=== PATIENT | female | born 1930 | race African-American/Black ===

== ENCOUNTER 2018-12-11 12:03 | Inpatient (IN) | payer MEDICARE, BC ==
[~2018-12-11] VITALS: Ht 162.6 cm; Wt 67.1 kg
[~2018-12-11 12:03] MED LIST: LEVO125T8 PO
[2018-12-11] MEDS ORDERED: SODIUM CHLORIDE 0.9% 1,000 ML IV ONE (13:36)
[2018-12-11 14:15] LABS: BASOPHILS % 1.2 % (0.0-2.0); EOSINOPHILS % 4.5 % (0.0-5.0); HEMATOCRIT. 40.6 % (36.0-48.0); HEMOGLOBIN. 13.1 g/dL (12.0-16.0); LYMPHOCYTES % 35.7 % (20.0-50.0); MEAN CORPUSCULAR HEMOGLOBIN 27.9 pg (28.0-32.0); MEAN CORPUSCULAR VOLUME 86.2 fL (81.0-99.0); MEAN PLATELET VOLUME 7.5 fl (7.4-10.4); MONOCYTES % 7.5 % (2.0-8.0); NEUTROPHILS % 51.1 % (40.0-76.0); PLATELET 184 x1000/uL (130-400); RED BLOOD CELL COUNT 4.71 mill/uL (4.2-5.4); RED CELL DISTRIBUTION WIDTH 14.4 % (11.6-14.6)
[2018-12-11 14:19] LABS: CHLORIDE 106 mEq/L (98-107)
[2018-12-11] MEDS ORDERED: ASPIRIN 325MG EC TABLET PO ONE (17:00)
[2018-12-11] MEDS ORDERED: CLONIDINE 0.1MG TABLET PO PRN (17:45)
[2018-12-11] MEDS ORDERED: ONDANSETRON HCL 4MG/2ML INJ IV PRN (17:45)
[2018-12-11] MEDS ORDERED: KETOROLAC 15MG/ML VIAL IV PRN (17:45)
[2018-12-11] MEDS ORDERED: ZOLPIDEM TARTRATE 5MG TABLET PO PRN (17:45)
[2018-12-11] MEDS ORDERED: NITROGLYCERIN 0.4MG TABLET SL SL PRN (17:45)
[2018-12-11] MEDS ORDERED: GUAIFENESIN 200MG/10ML SUGAR FREE UDC PO PRN (17:45)
[2018-12-11] MEDS ORDERED: MAGNESIUM/ALUMINUM HYDROXIDE/SIMETHICONE 30ML UDC PO PRN (17:45)
[2018-12-11] MEDS ORDERED: DOCUSATE SODIUM 100MG CAPSULE PO PRN (17:45)
[2018-12-11] MEDS ORDERED: ACETAMINOPHEN 325MG TABLET PO PRN (17:45)
[2018-12-11] MEDS ORDERED: LORAZEPAM 0.5MG TABLET PO PRN (17:45)
[2018-12-11] MEDS ORDERED: IPRATROPIUM/ALBUTEROL 0.5-3(2.5)MG/3ML NEB HHN PRN (17:45)
[2018-12-11 21:05] VITALS: BP 160/104
[2018-12-11] MEDS ORDERED: LEVOFLOXACIN 500MG PREMIX 100 ML IV SCH (22:00)
[2018-12-11] MEDS: FAMOTIDINE 20MG TABLET PO SCH (22:27)
[2018-12-11] MEDS: ENOXAPARIN 40MG/0.4ML SYR SUBCUT SCH (22:27)
[2018-12-11] MEDS: LISINOPRIL 20MG TABLET PO SCH (22:27)
[2018-12-12] VITALS: BP 121/67
[2018-12-12 00:17] LABS: CREATINE KINASE 38 IU/L (26-192)
[2018-12-12 00:18] LABS: CREATINE KINASE MB FRACTION < 1.0 ng/mL (0.5-3.6)
[2018-12-12 04:00] VITALS: BP 96/55
[2018-12-12] MEDS: LEVOTHYROXINE SODIUM 137MCG TABLET PO SCH ×2 (06:25→22:45)
[2018-12-12 07:45] LABS: CREATINE KINASE 34 IU/L (26-192)
[2018-12-12 07:49] LABS: CREATINE KINASE MB FRACTION < 1.0 ng/mL (0.5-3.6)
[2018-12-12] MEDS: FAMOTIDINE 20MG TABLET PO SCH (09:11)
[2018-12-12] MEDS: ASPIRIN 325MG EC TABLET PO SCH ×2 (09:12→22:50)
[2018-12-12] MEDS: LISINOPRIL 20MG TABLET PO SCH ×2 (09:12→22:43)
[2018-12-12 12:00] VITALS: BP 101/55
[2018-12-12] MEDS ORDERED: GABA-529 PO (15:55)
[2018-12-12] MEDS ORDERED: LEVO88TA7 PO (15:55)
[2018-12-12] MEDS ORDERED: MULT-1116 PO (15:55)
[2018-12-12] MEDS ORDERED: CYAN50003 PO (15:55)
[2018-12-12] MEDS ORDERED: FOLI20CA PO (15:59)
[2018-12-12 16:00] VITALS: BP 106/47
[2018-12-12 20:00] VITALS: BP 101/55
[2018-12-12] MEDS ORDERED: LEVOFLOXACIN 250MG PREMIX 50 ML IV SCH (21:00)
[2018-12-12] MEDS: ENOXAPARIN 40MG/0.4ML SYR SUBCUT SCH (22:44)
[2018-12-13] VITALS: BP 124/71
[2018-12-13 04:00] VITALS: BP 109/55
[2018-12-13 06:49] LABS: EOSINOPHILS % 4.1 % (0.0-5.0); HEMATOCRIT. 37.6 % (36.0-48.0); HEMOGLOBIN. 12.4 g/dL (12.0-16.0); LYMPHOCYTES % 43.4 % (20.0-50.0); MEAN CORPUSCULAR HEMOGLOBIN 28.1 pg (28.0-32.0); MEAN CORPUSCULAR VOLUME 85.4 fL (81.0-99.0); MEAN PLATELET VOLUME 7.6 fl (7.4-10.4); MONOCYTES % 9.4 % (2.0-8.0); NEUTROPHILS % 42.1 % (40.0-76.0); PLATELET 173 x1000/uL (130-400); RED CELL DISTRIBUTION WIDTH 14.7 % (11.6-14.6)
[2018-12-13 08:00] VITALS: BP 130/55
[2018-12-13 08:46] LABS: CHLORIDE 111 mEq/L (98-107)
[2018-12-13 08:56] LABS: CREATINE KINASE 32 IU/L (26-192)
[2018-12-13 08:58] LABS: CREATINE KINASE MB FRACTION < 1.0 ng/mL (0.5-3.6)
[2018-12-13] MEDS: LISINOPRIL 20MG TABLET PO SCH (09:03)
[2018-12-13] MEDS: FAMOTIDINE 20MG TABLET PO SCH (09:03)
[2018-12-13 11:55] VITALS: BP 117/60
[2018-12-13 12:00] VITALS: BP 117/60
[2018-12-13] MEDS ORDERED: LEVOFLOXACIN 250MG TABLET PO SCH (21:00)
== END 2018-12-13 14:35 | disposition home or self-care (01) | DRG 71 ==
LOC: ER 12:03 → 6WST 17:23 → SUPCPDRO 17:34 → ENRESERV 19:38
PROVIDERS: ADMIT Internal Medicine; ATTEND Internal Medicine
DX: G93.40 Encephalopathy, unspecified (principal); E44.1 Mild protein-calorie malnutrition; E03.9 Hypothyroidism, unspecified; I10 Essential (primary) hypertension; Z96.649 Presence of unspecified artificial hip joint; Z68.25 Body mass index [BMI] 25.0-25.9, adult; Z79.899 Other long term (current) drug therapy
CPT/HCPCS: 36415; 71045; 80048; 80061; 82550; 82553; 83036; 83735; 83880; 84443; 84484; 93005; 93306; 93880; 93970; 97161; 97166; 99285; J1650; J1956; J7030